=== PATIENT | male | born 1940 | race Caucasian/White ===

== ENCOUNTER → 2021-02-24 08:26 | Outpatient (BNVA) | payer MEDICARE, SELFPAY | PROVIDERS: PCP Internal Medicine; Visit Provider Hospitalist | DX: J41.0 Simple chronic bronchitis (principal); J98.6 Disorders of diaphragm; R05.9 Cough, unspecified; R06.00 Dyspnea, unspecified | CPT/HCPCS: 99202 ==

== ENCOUNTER 2021-03-04 08:45 | Outpatient (REF) | payer MEDICARE, SELFPAY ==
--- NOTE | 2021-03-04 17:48 | PFT_ITS ---
FLOWS: FEV1 50% of predicted at 1.55 L. FVC 49% of predicted at 2.13 L. FEV1 to FVC ratio of 0.73. Positive bronchodilator response. LUNG VOLUMES: Total lung capacity 63% of predicted at 4.73 L. Residual volume 93% of predicted at 2.62 L. Slow vital capacity 45% of predicted at 2.11 L. Expiratory reserve volume 22% of predicted at 0.29 L. Diffusion capacity is moderately decreased, diffusion capacity corrects to normal after adjustment for alveolar ventilation. IMPRESSION: Moderate to severe restrictive ventilatory defect with positive bronchodilator response. Decreased expiratory reserve volume suggests extrathoracic restriction. MD ALLISON Jin/MODL / [id number]
== END 2021-03-04 08:46 | disposition home or self-care (01) ==
LOC: HO.RESP 08:45
PROVIDERS: PCP Internal Medicine; Visit Provider Hospitalist
DX: J44.9 Chronic obstructive pulmonary disease, unspecified (principal)
CPT/HCPCS: 94060; 94727; 94729

== ENCOUNTER → 2021-04-09 09:58 | Outpatient (BNVA) | payer MEDICARE, SELFPAY | PROVIDERS: PCP Internal Medicine; Visit Provider Hospitalist | DX: J41.0 Simple chronic bronchitis (principal); J98.4 Other disorders of lung; J98.6 Disorders of diaphragm; Z79.899 Other long term (current) drug therapy | CPT/HCPCS: 99212 ==

== ENCOUNTER → 2021-12-03 09:08 | Outpatient (BNVA) | payer MEDICARE, SELFPAY | PROVIDERS: PCP Internal Medicine; Visit Provider Hospitalist | DX: J41.0 Simple chronic bronchitis (principal); R06.00 Dyspnea, unspecified; J98.6 Disorders of diaphragm; J98.4 Other disorders of lung | CPT/HCPCS: 99212 ==